=== PATIENT | male | born 1945 | race Caucasian/White ===

== ENCOUNTER → 2018-11-09 19:22 | Outpatient (REF) | payer MEDICARE, BC, SELFPAY ==
[2018-11-09 20:16] LABS: Alanine Aminotransferase 70 IU/L (21-72); Albumin 4.4 g/dL (3.5-5.0); Albumin Globulin Ratio 1.4 (1.0-2.8); Alkaline Phosphatase 62 U/L (38-126); Aspartate Aminotransferase 60 IU/L (17-59); BUN Creatinine Ratio 26.7 (6-22); Bilirubin Total 0.8 mg/dL (0.2-1.3); Blood Urea Nitrogen 24 mg/dL (9-20); Calcium 9.4 mg/dL (8.4-10.2); Carbon Dioxide 27 mmol/L (22-32); Chloride 98 mmol/L (98-107); Cholesterol 173 mg/dL (140-199); Estimated Glomerular Filt Rate > 60.0 mL/min (>60); Globulin 3.1 g/dL (1.7-4.1); Glucose 103 mg/dL (80-110); HDL Cholesterol 57 mg/dL (40-60); HEMOLYSIS < 15 (0-50); LDL Cholesterol Calculated 88 mg/dL (<100); Potassium 4.5 mmol/L (3.4-5.1); Sodium 135 mmol/L (137-145); Total Protein 7.5 g/dL (6.3-8.2); Triglycerides 140 mg/dL (35-150)
[2018-11-09 20:42] LABS: Thyroid Stimulating Hormone 1.49 uIU/mL (0.47-4.68)
[2018-11-09 20:44] LABS: Prostate Specific Antigen 0.687 ng/mL (0.10-4.00)
== END ==
LOC: LAB 19:22
PROVIDERS: Family Provider Family Medicine Geriatric Medicine; PCP Family Medicine Geriatric Medicine; Visit Provider Family Medicine Geriatric Medicine
DX: Z00.00 Encounter for general adult medical examination without abnormal findings (principal); Z79.899 Other long term (current) drug therapy; Z13.220 Encounter for screening for lipoid disorders; Z13.29 Encounter for screening for other suspected endocrine disorder
CPT/HCPCS: 36415; 80053; 80061; 82728; 83540; 83550; 83970; 84153; 84403; 84443

== ENCOUNTER → 2018-12-11 12:05 | Outpatient (CLI) | payer MEDICARE, BC, OTHER, SELFPAY ==
--- NOTE | 2018-12-11 | DI.MRI.S_ITS ---
PROCEDURE: MR LUMBAR SPINE WO CON INDICATIONS: RADICULAR PAIN AND WEAKNESS TECHNIQUE: Noncontrast sagittal T1 spin echo and T2 fast echo, sagittal STIR, axial T1 and T2 fast spin echo through the lumbar spine. In cases with scoliosis, additional coronal T2 fast spin echo may be performed. COMPARISON: [facility], CR, XR LUMBAR SPINE FLEXION EXTENSION, 11/03/2017, 8:16. [facility], CR, L-SPINE 2-3 VIEWS, 07/16/2008, 13:15. FINDINGS: Image quality: Excellent. Alignment and Curvature: There is grade 1 anterolisthesis of L2 on L3 and grade 1 retrolisthesis of L3 on L4. Bone Marrow: Degenerative endplate signal changes are present. No acute vertebral body compression fractures. Spinal Cord: Conus medullaris terminates at the L1-L2 level. Visualized cord demonstrates normal signal and size. Paraspinous Soft Tissues: No paravertebral masses. L1-L2: Mild loss of disc height and disc desiccation. There is mild posterior disc bulge. The central canal is patent. No foraminal stenosis. L2-L3: Moderate loss of disc height and disc desiccation. There is diffuse posterior disc bulge and disc osteophyte complex. There is severe bilateral facet arthropathy and hypertrophy of ligamentum flavum. The central canal is severely narrowed. Moderate left and mild right foraminal stenosis. L3-L4: Moderate loss of disc height and disc desiccation. There is diffuse posterior disc bulge and disc osteophyte complex. There is mild bilateral facet arthropathy and hypertrophy of ligamentum flavum. The central canal is severely narrowed. Moderate right and mild left foraminal stenosis. L4-L5: Preserved disc height. Mild disc desiccation. There is diffuse posterior disc bulge and disc osteophyte complex. There is small posterior central disc protrusion and superimposed annular fissure. Mild bilateral facet arthropathy and hypertrophy of ligamentum flavum. The central canal is moderately narrowed. [id number] bilateral foraminal stenosis. L5-S1: Preserved disc height. Mild disc desiccation. There is diffuse posterior disc bulge and disc osteophyte complex. There is small posterior central annular fissure. Mild bilateral facet arthropathy and hypertrophy of ligamentum flavum. The central canal is mildly narrowed. [id number] bilateral foraminal stenosis. IMPRESSION: 1. Multilevel degenerative disc disease and facet arthropathy as described. 2. Severe central canal stenosis at L2-L3, L3-L4 and L4-L5. 3. Multilevel foraminal stenosis as described. Dictated by: Howard Perez M.D. on 12/11/2018 at 13:56 Approved by: Howard Perez M.D. on 12/11/2018 at 17:39
== END ==
PROVIDERS: Family Provider Family Medicine Geriatric Medicine; PCP Family Medicine Geriatric Medicine; Visit Provider Family Medicine Geriatric Medicine
DX: M51.16 Intervertebral disc disorders with radiculopathy, lumbar region (principal); M51.17 Intervertebral disc disorders with radiculopathy, lumbosacral region; M47.26 Other spondylosis with radiculopathy, lumbar region; M47.27 Other spondylosis with radiculopathy, lumbosacral region; M48.061 Spinal stenosis, lumbar region without neurogenic claudication; M48.07 Spinal stenosis, lumbosacral region
CPT/HCPCS: 72148

== ENCOUNTER → 2019-03-06 12:59 | Outpatient (CLI) | payer MEDICARE, OTHER, SELFPAY ==
--- NOTE | 2019-03-06 | DI.US.S_ITS ---
PROCEDURE: US ABDOMEN COMPLETE INDICATIONS: EDEMA TECHNIQUE: Real-time scanning was performed of the abdominal and retroperitoneal organs, with image documentation. COMPARISON: None. FINDINGS: Liver: Liver is normal in size. Slightly increased liver parenchymal echotexture is seen. Gallbladder: There is no gallstone. No gallbladder wall thickening or pericholecystic fluid. No sonographic Celeste's sign. Biliary ducts: Intrahepatic bile ducts are non-dilated. Extrahepatic bile duct caliber measures 3.1 mm. Normal is 6-7 mm or less in diameter, or 10 mm or less post-cholecystectomy. Pancreas: Not well-visualized due to overlying bowel gas. Spleen: Spleen is normal in size and homogeneous in echotexture. Kidneys: Kidneys are normal in size and echotexture. Right kidney measures 11.8 cm long; left kidney measures 11.5 cm long. No hydronephrosis or nephrolithiasis. No solid masses. Aorta: Visualized aorta is normal in caliber at less than 3 cm. Iliacs: Proximal common iliac arteries are normal in caliber at less than 2.5 cm. IVC: Intrahepatic inferior vena cava is patent. Miscellaneous: No free abdominal fluid. IMPRESSION: 1. No abdominal ascites fluid. 2. Very mild hepatic steatosis, no discrete hepatic lesion. 3. Rest of exam is unremarkable. Dictated by: Girish Villarreal M.D. on 03/06/2019 at 14:40 Approved by: Girish Villarreal M.D. on 03/06/2019 at 14:42
--- NOTE | 2019-03-06 | DI.US.S_ITS ---
PROCEDURE: US PERIPH VENOUS LOW EXTREM BI INDICATIONS: EDEMA/ASCITES POST SURGERY TECHNIQUE: Real-time imaging, as well as color and pulse Doppler interrogation, were performed of the deep veins of both legs from the inguinal ligament to the popliteal fossa. COMPARISON: None. FINDINGS: Right: The common femoral, femoral and popliteal veins are normally compressible, and free of intraluminal thrombus. Color and pulse Doppler demonstrate normal phasic intravascular flow. There is normal augmentation response to distal compression maneuver. Left: The common femoral, femoral and popliteal veins are normally compressible, and free of intraluminal thrombus. Color and pulse Doppler demonstrate normal phasic intravascular flow. There is normal augmentation response to distal compression maneuver. IMPRESSION: No evidence of DVT in the visualized bilateral lower extremity veins. Dictated by: Girish Villarreal M.D. on 03/06/2019 at 14:42 Approved by: Girish Villarreal M.D. on 03/06/2019 at 14:50
[2019-03-06 13:38] LABS: Add Manual Diff / Slide Review NO; Basophils Absolute Auto 0 /uL (0-100); Basophils Percent Auto 0.3 % (0-2); Eosinophils Absolute Auto 0 /uL (0-450); Eosinophils Percent Auto 0.2 % (2-4); Hematocrit 40.9 % (41-53); Hemoglobin 13.9 g/dL (13.5-17.5); Lymphocytes Absolute Auto 2100 /uL (1100-4500); Lymphocytes Percent Auto 26.2 % (25-40); Mean Corpuscular HGB Conc 33.9 % (30-36); Mean Corpuscular Hemoglobin 34.3 PG (26-34); Mean Corpuscular Volume 101.3 fL (80-100); Monocytes Absolute Auto 1000 /uL (0-900); Monocytes Percent Auto 12.6 % (3-14); Neutrophils Absolute Auto 4800 /uL (1500-7000); Neutrophils Percent Auto 60.7 % (50-75); Platelet Count 241 X10^3/uL (150-400); Red Blood Cell Count 4.04 X10^6/uL (4.5-5.9); Red Cell Distribution Width 13.2 % (11.6-14.8)
[2019-03-06 13:39] LABS: White Blood Cell Count 7.9 X10^3/uL (4.5-11.0)
[2019-03-06 13:56] LABS: Erythrocyte Sedimentation Rate 62 MM/HR (0-15)
[2019-03-06 14:46] LABS: Alanine Aminotransferase 122 IU/L (21-72); Albumin 3.7 g/dL (3.5-5.0); Albumin Globulin Ratio 1.3 (1.0-2.8); Alkaline Phosphatase 96 U/L (38-126); Aspartate Aminotransferase 76 IU/L (17-59); BUN Creatinine Ratio 26.3 (6-22); Bilirubin Total 0.8 mg/dL (0.2-1.3); Blood Urea Nitrogen 21 mg/dL (9-20); Calcium 9.8 mg/dL (8.4-10.2); Carbon Dioxide 29 mmol/L (22-32); Chloride 101 mmol/L (98-107); Estimated Glomerular Filt Rate > 60.0 mL/min (>60); Globulin 2.9 g/dL (1.7-4.1); Glucose 95 mg/dL (80-110); HEMOLYSIS < 15 (0-50); Potassium 4.5 mmol/L (3.4-5.1); Sodium 139 mmol/L (137-145); Total Protein 6.6 g/dL (6.3-8.2)
== END ==
PROVIDERS: Family Provider Family Medicine Geriatric Medicine; PCP Family Medicine Geriatric Medicine; Visit Provider Family Medicine Geriatric Medicine
DX: R60.9 Edema, unspecified (principal); K76.0 Fatty (change of) liver, not elsewhere classified
CPT/HCPCS: 36415; 76700; 80053; 85025; 85651; 93970

== ENCOUNTER → 2025-01-30 12:11 | Outpatient (CLI) | payer MEDICARE, OTHER, SELFPAY ==
--- NOTE | 2025-01-30 13:01 | DI.MRI.S_ITS ---
PROCEDURE: MR LUMBAR SPINE WO/W CON INDICATIONS: LUMBAR RADICULOPATHY TECHNIQUE: Noncontrast sagittal T1 spin echo and T2 fast echo, sagittal STIR, and T2 fast spin echo through the lumbar spine. In cases with scoliosis, additional coronal T2 fast spin echo may be performed. COMPARISON: [facility] [place], CR, XR LUMBAR SPINE FLEXION EXTENSION, 11/03/2017, 8:16. [facility], , MR LUMBAR SPINE WO CON, 12/11/2018, 13:24. FINDINGS: Image quality: Excellent. Alignment and Curvature: There is [id number] dextroconvex lumbar scoliosis. There is minimal anterolisthesis at L2-L3. Minimal retrolisthesis can be seen at L3-L4 and L4-L5. Mild grade 1 anterolisthesis is seen at L5-S1. No definite associated pars defects are seen. Bone Marrow: Marrow is of normal overall signal. No acute vertebral body compression fractures. Spinal Cord: Conus medullaris terminates at the L1 level. Visualized cord demonstrates normal signal and size. Paraspinous Soft Tissues: No paravertebral masses. T11-T12: At least moderate loss of disc height and disc signal can be seen. Reactive marrow endplate changes are seen, which demonstrate mixed T1 weighted and T2-weighted signal, and are attributed to a combination of edema and fatty metaplasia (Modic type I and Modic type II changes). At least moderate disc bulge is seen. There is a superimposed central disc osteophyte protrusion. Moderate facet joint hypertrophy is seen. When comparison is made with the prior images, these findings are similar. T12-L1: Normal appearance. L1-L2: The disc height is well-preserved. Loss of disc signal is seen at this level. Mild generalized disc bulge is seen. Mild facet joint hypertrophy is seen. There is moderate left-sided and no right-sided neural foraminal narrowing. Mild central canal narrowing is seen. When comparison is made with the prior images, these findings are similar. L2-L3: At least moderate loss of disc height and disc signal can be seen. At least moderate disc bulge is seen, which is eccentric to the left. There is prior right hemilaminectomy change. At least moderate facet hypertrophy is seen. Associated hypertrophy of the ligamentum flavum can be seen. There is moderate right-sided and at least moderate left-sided neural foraminal narrowing. At least moderate central canal narrowing is seen at this level. The degree of central canal narrowing is improved compared to the prior. The degree of neural foraminal narrowing is worse than on the prior. L3-L4: At least moderate loss of disc height and disc signal can be seen. Reactive marrow endplate changes are seen, which are hyperintense on T1-weighted and T2-weighted imaging and most consistent with fatty metaplasia (Modic type II changes). At least moderate disc bulge is seen. There is a superimposed central disc osteophyte protrusion. Moderate facet joint hypertrophy is seen. Prior right hemilaminectomy change can be seen. There is at least moderate bilateral neural foraminal narrowing at this level. Moderate central canal narrowing is seen. The degree of central canal narrowing is clearly improved compared to the prior. The degrees of disc space narrowing and neural foraminal narrowing are worse compared to 2019. L4-L5: [id number] loss of disc height and disc signal can be seen. Reactive marrow endplate changes are seen which are hypointense on T1-weighted imaging and hyperintense on T2 weighted imaging, which is most consistent with edema (Modic type I changes). Associated endplate enhancement can be seen. Moderate generalized disc bulge is seen. There is a superimposed central disc protrusion. Moderate facet joint hypertrophy is seen. There is at least moderate left-sided and moderate to severe right-sided neural foraminal narrowing. Prior partial removal of portions of the posterior elements can be seen. The degree of central canal narrowing is improved compared to the prior. The degrees of neural foraminal narrowing are worse than on the prior MRI, however. L5-S1: Mild loss of disc height is seen. Loss of disc signal is seen. Mild to moderate disc bulge is seen, which is eccentric to the right. At least moderate facet hypertrophy is seen. There is moderate left-sided and at least moderate right-sided neural foraminal narrowing. No significant central canal narrowing is seen. When comparison is made with the prior images, these findings are similar. IMPRESSION: Multiple levels of significant lumbar spine degenerative change can be seen. Prior postoperative change can be seen with removal of portions of the posterior elements at L2-L3, L3-L4, and at L4-L5, with improvement in the degrees of central canal narrowing at these levels compared to the 2019 MRI. Otherwise, the degenerative changes are progressed at several levels compared to the prior images. Dictated by: Harmeet Royal M.D. on 01/30/2025 at 14:02 Approved by: Harmeet Royal M.D. on 01/30/2025 at 14:10
== END ==
PROVIDERS: Family Provider Family Medicine Geriatric Medicine; PCP Student in an Organized Health Care Education/Training Program; Referring Provider Student in an Organized Health Care Education/Training Program; Visit Provider Student in an Organized Health Care Education/Training Program
DX: M51.16 Intervertebral disc disorders with radiculopathy, lumbar region (principal); M47.27 Other spondylosis with radiculopathy, lumbosacral region; M47.26 Other spondylosis with radiculopathy, lumbar region; M48.061 Spinal stenosis, lumbar region without neurogenic claudication; M48.07 Spinal stenosis, lumbosacral region
CPT/HCPCS: 72158; A9579